=== PATIENT | female | born 1965 | race Caucasian/White ===

== ENCOUNTER → 2016-07-29 | Outpatient (CLI) | payer BC ==
[2016-07-29 09:56] LABS: CHLORIDE,CL 106 mmol/L (98-110); SODIUM,NA 137 mmol/L (136-146)
== END ==
LOC: MW.LAB 08:48
PROVIDERS: ATTEND Obstetrics & Gynecology
DX: R14.0 Abdominal distension (gaseous) (principal); R10.2 Pelvic and perineal pain; Z86.718 Personal history of other venous thrombosis and embolism
CPT/HCPCS: 36415; 80053; 80061; 82306; 82607; 83735; 84443; 85027; 85303

== ENCOUNTER → 2016-08-01 | Outpatient (CLI) | payer BC | LOC: MW.CHFP 08:03 | PROVIDERS: ATTEND Emergency Medicine | DX: Z83.3 Family history of diabetes mellitus (principal) | CPT/HCPCS: 36415; 83036 ==

== ENCOUNTER → 2016-08-02 | Outpatient (CLI) | payer BC ==
--- NOTE | 2016-08-03 13:10 | MY ---
EXAMINATION: Bilateral digital mammography utilizing CAD. HISTORY: Screening exam. Comparison is made to previous studies dated 07/27/2015, 07/23/2014, 013 . FINDINGS: Bilateral heterogeneously dense breast tissue. There are a few stable, loosely grouped c alcifications within the outer left breast. No suspicious calcifications, masses or architectural d istortions. No pathologic appearing lymph nodes, no abnormal skin thickening or nipple inversion. CAD highlighted regions appear normal at this time. IMPRESSION: BI-RADS category II - Benign finding. Continued screening according to ACR-ACS guidelin es suggested. THE FALSE-NEGATIVE RATE OF MAMMOGRAM IS APPROXIMATELY 10%. MANAGEMENT OF A PALPABLE ABNORMALITY MUST BE BASED UPON CLINICAL GROUNDS. SENSITIVITY FOR DETECTION OF ABNORMALITIES IN DENSE BREASTS IS LOW. NOTE: A letter will be sent to the patient regarding findings. [facility] -- [place] [phone] - FAX [phone]
== END ==
LOC: MW.MAM 13:24
PROVIDERS: ATTEND Obstetrics & Gynecology
DX: Z12.31 Encounter for screening mammogram for malignant neoplasm of breast (principal)
CPT/HCPCS: G0202; G0202-26

== ENCOUNTER 2017-04-19 09:06 | Day surgery (SDC) | payer BC ==
[~2017-04-19 09:06] MED LIST: Acetaminophen/HYDROcodone 325-5 MG Tab PO PRN; Bupivacaine 0.25%/EPINEPHrine 1:200,000 10 ML SDV INJECT ONE; Bupivacaine 25%/EPINEPHrine/PF 30 ML ONE; Clindamycin Phosphate in D5W 600 MG in Premix Bag 1 BAG IV ONE; Lactated Ringers 1,000 ML IV SCH; Octyl 2-Cyanoacrylate 1 Tube ONE
[2017-04-19] MEDS ORDERED: Scopolamine 1.5 MG Transdermal Patch TRDERM PRN (10:01)
--- NOTE | 2017-04-19 10:03 | PCM.PREANE ---
Preanesthetic Assessment - Procedure Proposed Procedure: bilateral upper blepharoplasty - Anesthesia/Transfusion/Family Hx Anesthesia History: Prior Anesthesia Reaction Other Type of Anesthesia Reaction Comment: Nausea, "concern with history of blood clot, with prior gave anti-coag ther Family History of Anesthesia Reaction: No Transfusion History: No Prior Transfusion(s) - Review of Systems Pulmonary: Cough (clear phlegm) Other: Reports: None - Physical Assessment NPO Status Date: 04/18/17 NPO Status Time: 21:00 Pulse: 89 O2 Sat by Pulse Oximetry: 98 Respiratory Rate: 12 Blood Pressure: 137/68 Temperature: 36.8 C Height: 5 ft 6 in Weight: 78.925 kg ASA Class: 2 Mental Status: Alert & Oriented x3 Airway Class: Mallampati = 1 Dentition: Reports: Normal Dentition Thyro-Mental Finger Breadths: 3 Mouth Opening Finger Breadths: 3 ROM/Head Extension: Full - Allergies Allergies/Adverse Reactions: Allergies Allergy/AdvReac Type Severity Reaction Status Date / Time Penicillins Allergy Cannot Verified 04/14/17 16:54 Remember - Blood Blood Available: No - Acknowledgements Anesthesia Type Planned: MAC Pt an Appropriate Candidate for the Planned Anesthesia: Yes Alternatives and Risks of Anesthesia Discussed w Pt/Guardian: Yes Pt/Guardian Understands and Agrees with Anesthesia Plan: Yes PreAnesthesia Questionnaire HEENT History: Reports: Allergic Rhinitis Other HEENT History: wears glasses/contacts Cardiovascular History: Reports: Blood Clots/VTE/DVT Other Cardiovascular History: has Paget Schroetter disease, 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 Respiratory History: Reports: Asthma, Sleep Apnea Other Respiratory History: uses CPAP, was told she "doesn't have asthma anymore ", no inhaler Gastrointestinal History: Reports: Diverticulosis, GERD Other Gastrointestinal History: Take natural things for colon stomach, occasional use of Nexium but current use of Colon Health, Digestive enzymes, ' Extrozyme', "Young Living" Musculoskeletal History: Reports: Back Pain, Chronic Neurological History: Reports: Other (See Below) Other Neuro History: hx of motion sickness Psychiatric History: Reports: Depression Other Psychiatric History: REcently off medication that have taken for 8 yrs approximately,. "no depression medication for 2 months" Endocrine/Metabolic History: Reports: Other (See Below) Other Endocrine/Metabolic History: vitamin B deficiency, type 2 DM take metformin BS at 1000 was 85 Hematologic History: Reports: B12 Deficiency, Other (See Below) Other Hematologic History: hx of Pagets Schroetter disease- has had a clood clot in her left subclavian vein- took anticoagulants for 1 1/2 years Other Oncologic History: 'Frozen section to upper lip area' Dermatologic History: Reports: Other (See Below) Other Dermatologic History: has non removable dermal piercings - Past Surgical History Head Surgeries/Procedures: Reports: None GI Surgical History: Reports: Colonoscopy Female Surgical History: Reports: Other (See Below) Other Female Surgeries/Procedures: abdominoplasty, Exploratory Laparotomy ( can't remember why) Musculoskeletal Surgical History: Reports: Arthroscopic Knee, Ganglion Cyst, Shoulder Surgery Other Musculoskeletal Surgeries/Procedures:: right RTCR, states one screw removed, may have more - SUBSTANCE USE Smoking Status *Q: Current Some Day Smoker Tobacco Use Within Last Twelve Months: Cigarettes Days Per Week of Alcohol Use: 2 Recreational Drug Use History: No - HOME MEDS Home Medications: Home Meds Cyanocobalamin (Vitamin B-12) [Vitamin B-12] 1,000 mcg IM WEEKLY 07/29/13 [ History] Esomeprazole [NexIUM] 40 mg PO DAILY 07/29/13 [History] Progesterone Cream 1 dose TOP ASDIRECTED 04/14/17 [History] Testosterone [Testopel] 1 dose IM ASDIRECTED 04/14/17 [History] Venlafaxine HCl [Venlafaxine HCl ER] 75 mg PO DAILY 04/14/17 [History] Vitamin B Complex 1 cap PO DAILY 04/14/17 [History] buPROPion [buPROPion XL] 150 mg PO DAILY 04/14/17 [History] metFORMIN HCl [Metformin HCl ER] 500 mg PO BIDMEALS 04/14/17 [History] - CURRENT (IN HOUSE) MEDS Current Meds: Current Medications Hydrocodone Bitart/Acetaminophen (Hadley 325-5 Mg) 1 tab PO Q4H PRN PRN Reason: Pain Lactated Ringer's (Ringers, Lactated) 1,000 mls @ 500 mls/hr IV .BOLUS TY Discontinued Medications Bupivacaine HCl/Epinephrine Bitart (Marcaine 0.25%/Epinephrine 1:200,000) 10 ml INJECT ONETIME ONE Stop: 04/19/17 08:01 Clindamycin Phosphate 600 mg/ (Premix) 50 mls @ 150 mls/hr IV ONETIME ONE Stop: 04/19/17 08:19 Bupivacaine HCl/Epinephrine Bitart (Sensorc Mpf 0.25%-Epi [id number]) Confirm Administered Dose 30 mls @ as directed .ROUTE .STK-MED ONE Stop: 04/19/17 07:37 Octyl Cyanoacrylate (Dermabond Advance) Confirm Administered Dose 1 applic .ROUTE .STK-MED ONE Stop: 04/19/17 08:18
[2017-04-19] MEDS ORDERED: Lidocaine 2% 5 ML SDV ONE (10:57)
[2017-04-19] MEDS ORDERED: Propofol 200 MG/20 ML SDV ONE ×2 (10:59)
[2017-04-19] MEDS ORDERED: Midazolam 1 MG/ML 2 ML SDV ONE (11:00)
[2017-04-19] MEDS ORDERED: fentaNYL 100 MCG/2 ML SDV ONE (11:00)
[2017-04-19] MEDS ORDERED: diphenhydrAMINE 50 MG/ML SDV ONE (12:33)
[2017-04-19] MEDS ORDERED: Ondansetron 4 MG/2 ML SDV ONE (13:09)
--- NOTE | 2017-04-19 14:11 | PCM48HPAN ---
Post Anesthesia Note - EVALUATION WITHIN 48HRS OF ANESTHETIC Vital Signs in Normal Range: Yes Patient Participated in Evaluation: Yes Respiratory Function Stable: Yes Airway Patent: Yes Cardiovascular Function Stable: Yes Hydration Status Stable: Yes Pain Control Satisfactory: Yes Nausea and Vomiting Control Satisfactory: Yes Mental Status Recovered: Yes - COMMENTS/OBSERVATIONS Free Text/Narrative:: No anesthesia problems,patient skipped recovery room phase of postoperative care
[2017-04-19 14:56] VITALS: BP 124/80
--- NOTE | 2017-04-20 08:01 | PCM.OPNOTE ---
- General Post-Op/Procedure Note Date of Surgery/Procedure: 04/19/17 Operative Procedure(s): bilateral upper lid blepahroplasties for excess skin Pre Op Diagnosis: dermatochalasis bilateral upper lids Post-Op Diagnosis: Same Anesthesia Technique: Local, MAC Primary Surgeon: Nidia Rosales Hopper Feeder: Pepper Wilde Complications: None Condition: Good
--- NOTE | 2017-04-20 12:47 | OR ---
SURGEON: ADRIAN OLIVA MD DATE OF PROCEDURE: 04/19/2017 PREOPERATIVE DIAGNOSIS: Dermatochalasis of bilateral upper lids. POSTOPERATIVE DIAGNOSIS: Dermatochalasis of bilateral upper lids. PROCEDURE: Bilateral upper lid blepharoplasties for excess skin. HAND SALTER: JOHN Morse. ANESTHESIA: Local MAC. INDICATIONS: Ms. Rasmussen is a 52-year-old female with significant upper eyelid skin enough that it is causing her visual obstruction. Risks and benefits of blepharoplasty bilaterally were discussed with her including, but not limited to, bleeding, infection, damage to underlying or overlying structures, possible need for future interventions, possible scarring. PROCEDURE IN DETAIL: After informed consent was obtained and placed on the chart, the patient was brought to the operating theater and laid in supine position. After adequate local MAC anesthesia was obtained, the area was prepped and draped, and a time- out was completed to confirm side and site. The patient does have new dermal implant on the upper back and a bipolar cautery was elected. Attention was then paid to markings using a small caliper for 1 cm preservation of the upper lid and 1 cm excision. Once adequately prepped and draped and marked, attention was then paid to injection of 0.25% Marcaine with epinephrine in a field block. Once adequately blocked, attention was then paid to the elliptical incision and the skin was removed. Meticulous hemostasis was obtained using the bipolar electrocautery. Once adequate hemostasis and contracture of the muscle, the wounds were closed with deep 5-0 Monocryl stitches and a running 6-0 Prolene for the skin. The patient tolerated this well and Steri-Strips were place using Mastisol. FOLLOWUP INSTRUCTIONS: The patient will see us in approximately 1 week sooner if any problems, questions, or concerns. Given a prescription for pain control. HEGGTHE / MODL /[id number] MTDBar
== END 2017-04-19 14:30 | disposition home or self-care (01) ==
LOC: MW.SDS 09:06
PROVIDERS: ATTEND Plastic Surgery
DX: H02.834 Dermatochalasis of left upper eyelid (principal); H02.831 Dermatochalasis of right upper eyelid; J45.909 Unspecified asthma, uncomplicated; F32.9 Major depressive disorder, single episode, unspecified; N60.19 Diffuse cystic mastopathy of unspecified breast; K21.9 Gastro-esophageal reflux disease without esophagitis; G47.33 Obstructive sleep apnea (adult) (pediatric); E66.3 Overweight; D68.59 Other primary thrombophilia; E53.8 Deficiency of other specified B group vitamins; E11.9 Type 2 diabetes mellitus without complications; Z99.89 Dependence on other enabling machines and devices; Z88.0 Allergy status to penicillin; Z79.899 Other long term (current) drug therapy; Z98.890 Other specified postprocedural states; Z68.28 Body mass index [BMI] 28.0-28.9, adult; Z79.84 Long term (current) use of oral hypoglycemic drugs
CPT/HCPCS: 15822; 81025; 82962; A9270; J1200; J2250; J2405; J3010; J7120; 00103; J2704

== ENCOUNTER 2018-04-10 07:20 | Day surgery (SDC) | payer BC ==
[~2018-04-10 07:20] MED LIST changes: -Acetaminophen/HYDROcodone 325-5 MG Tab PO PRN; -Bupivacaine 0.25%/EPINEPHrine 1:200,000 10 ML SDV INJECT ONE; -Bupivacaine 25%/EPINEPHrine/PF 30 ML ONE; -Clindamycin Phosphate in D5W 600 MG in Premix Bag 1 BAG IV ONE; +Lidocaine 2% 5 ML SDV ONE; +Midazolam 1 MG/ML 2 ML SDV ONE; -Octyl 2-Cyanoacrylate 1 Tube ONE; +Propofol 200 MG/20 ML SDV ONE; +Sodium Chloride 0.9% 10 ML Syringe FLUSH PRN; +Sodium Chloride 0.9% 2.5 ML Syringe FLUSH PRN; +fentaNYL 100 MCG/2 ML SDV ONE
--- NOTE | 2018-04-10 08:06 | PCM.PREANE ---
Preanesthetic Assessment - Procedure Proposed Procedure: EGD with biopsy - Anesthesia/Transfusion/Family Hx Anesthesia History: Prior Anesthesia Without Reaction (blepharoplasty, colonoscopy, upper lip biopsy, abdominoplasty, knee, shoulder, exploratory laparotomy: No prolems with anesthesia) Other Type of Anesthesia Reaction Comment: Nausea, "concern with history of blood clot, with prior gave anti-coag ther Family History of Anesthesia Reaction: No Transfusion History: No Prior Transfusion(s) - Review of Systems General: No Symptoms (NIDDM, asthma, depression, smoker, RICARDO per sleep study, history of blood clot in left subclavian vein(Paget Schroetter disease--was on anticoagulants for 18 months), GERD, divdrticulosis, low back pain, borderline short CO interval on EKG without episodes of tachycardias) Pulmonary: No Symptoms (last asthma attack where she HAD to use her inhaler approx one week ago in [place] > RICARDO--uses CPAP nightly) Cardiovascular: No Symptoms Gastrointestinal: No Symptoms Neurological: No Symptoms (dpression) Other: Reports: None (3 dermal piercings on back) - Physical Assessment NPO Status Date: 04/10/18 NPO Status Time: 00:00 Pulse: 102 O2 Sat by Pulse Oximetry: 98 Respiratory Rate: 18 Blood Pressure: 133/87 Temperature: 36.8 C Height: 1.68 m Weight: 77.564 kg ASA Class: 3 Mental Status: Alert & Oriented x3 Airway Class: Mallampati = 2 Dentition: Reports: Normal Dentition Thyro-Mental Finger Breadths: 2 Mouth Opening Finger Breadths: 3 ROM/Head Extension: Full Lungs: Clear to Auscultation (she took a puff of albuterol inhaler this morning and again just prior to my examination of her(per my request)), Normal Respiratory Effort Cardiovascular: Regular Rate, Regular Rhythm, No Murmurs - Lab Values: CBC on 09/22/17 was WNL BMP 12/28 = WNL FBS this morning 0818 hrs = 110 Cannot urinate: HCG blood draw at 0825 - Imaging/EKG Impressions: EKG done 07/2016 was NSR - Allergies Allergies/Adverse Reactions: Allergies Allergy/AdvReac Type Severity Reaction Status Date / Time Penicillins Allergy Cannot Verified 04/05/18 10:42 Remember - Blood Blood Available: No Product(s) Available: None - Anesthesia Plan Pre-Op Medication Ordered: Other (albuterol inhaler done preop) - Acknowledgements Anesthesia Type Planned: MAC (MAC discusssed with patient and --all questions answered. Consent signed.) Pt an Appropriate Candidate for the Planned Anesthesia: Yes Alternatives and Risks of Anesthesia Discussed w Pt/Guardian: Yes Pt/Guardian Understands and Agrees with Anesthesia Plan: Yes Additional Comments: Blood clot in left subclavian vein l989 due to ?. Paget Schroetter disease- first rib impingement?. Patient was actively participating in 4 softball teams at the time. Treated for 18 months with blood thinners. Not fully resolved at this point but stable. The axillary-subclavian clotting occurs with repeated activity of the arm/ shoulder (as in softball). No further recurrences PreAnesthesia Questionnaire HEENT History: Reports: Allergic Rhinitis, Other (See Below) Other HEENT History: wears glasses occasionally Cardiovascular History: Reports: Blood Clots/VTE/DVT, Other (See Below) Other Cardiovascular History: 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 for over a year- hx of shortened CO interval per chart Respiratory History: Reports: Sleep Apnea, Other (See Below) Other Respiratory History: hx of chronic cough, hx of sleep apnea- uses CPAP Gastrointestinal History: Reports: GERD Other Gastrointestinal History: Take natural things for colon stomach, occasional use of Nexium but current use of Colon Health, Digestive enzymes, ' Extrozyme', "Young Living" Genitourinary History: Reports: None Musculoskeletal History: Reports: Back Pain, Chronic, Neck Pain, Chronic Neurological History: Reports: Other (See Below) Other Neuro History: hx of motion sickness Psychiatric History: Reports: Depression Other Psychiatric History: REcently off medication that have taken for 8 yrs approximately,. "no depression medication for 2 months" Endocrine/Metabolic History: Reports: Diabetes, Type II Other Endocrine/Metabolic History: vitamin B deficiency, type 2 DM take metformin BS at 1000 was 86 Hematologic History: Reports: B12 Deficiency Other Hematologic History: hx of Pagets Schroetter disease- has had a clood clot in her left subclavian vein- took anticoagulants for 1 1/2 years Other Oncologic History: 'Frozen section to upper lip area' Dermatologic History: Reports: Other (See Below) Other Dermatologic History: has 3 dermal piercings in back- not removable - Past Surgical History HEENT Surgical History: Reports: Eye Surgery Other HEENT Surgeries/Procedures: hx of Blepharoplasty GI Surgical History: Reports: Colonoscopy, Other (See Below) Other GI Surgeries/Procedures: hx of Abdominoplasty Female Surgical History: Reports: Other (See Below) Other Female Surgeries/Procedures: hx of Laparoscopy Musculoskeletal Surgical History: Reports: Arthroscopic Knee, Ganglion Cyst, Shoulder Surgery Other Musculoskeletal Surgeries/Procedures:: right RTCR - SUBSTANCE USE Smoking Status *Q: Current Some Day Smoker Tobacco Use Within Last Twelve Months: Cigarettes Recreational Drug Use History: No - HOME MEDS Home Medications: Home Meds Cyanocobalamin (Vitamin B-12) [Vitamin B-12] 1,000 mcg IM ASDIRECTED 07/29/13 [ History] Esomeprazole [NexIUM] 40 mg PO DAILY 07/29/13 [History] Venlafaxine HCl [Venlafaxine HCl ER] 150 mg PO DAILY 04/14/17 [History] Vitamin B Complex 1 cap PO DAILY 04/14/17 [History] buPROPion [buPROPion XL] 150 mg PO DAILY 04/14/17 [History] metFORMIN HCl [Metformin ER Osmotic] 500 mg PO BIDMEALS 04/14/17 [History] Albuterol [Ventolin HFA] 1 - 2 puff INH Q4H PRN 04/05/18 [History] Budesonide/Formoterol Fumarate [Symbicort 160-4.5 Mcg Inhaler] 2 puff INH BID [History] Fluticasone Propionate [Flonase Allergy Relief] 1 - 2 spray NASBOTH DAILY PRN [History] Montelukast Sodium 10 mg PO BEDTIME 04/05/18 [History] Ozempic 0.5 mg SQ WEEKLY 04/05/18 [History] - CURRENT (IN HOUSE) MEDS Current Meds: Current Medications Lactated Ringer's (Ringers, Lactated) 1,000 mls @ 125 mls/hr IV ASDIRECTED TY Sodium Chloride (Saline Flush) 10 ml FLUSH ASDIRECTED PRN PRN Reason: Keep Vein Open Sodium Chloride (Saline Flush) 2.5 ml FLUSH ASDIRECTED PRN PRN Reason: Keep Vein Open Sodium Chloride (Saline Flush) 10 ml FLUSH ASDIRECTED PRN PRN Reason: Keep Vein Open Sodium Chloride (Saline Flush) 2.5 ml FLUSH ASDIRECTED PRN PRN Reason: Keep Vein Open Discontinued Medications Fentanyl (Sublimaze) Confirm Administered Dose 100 mcg .ROUTE .STK-MED ONE Stop: 04/10/18 07:10 Lidocaine (Xylocaine-Mpf 2%) Confirm Administered Dose 5 ml .ROUTE .STK-MED ONE Stop: 04/10/18 07:09 Midazolam HCl (Versed 1 Mg/Ml) Confirm Administered Dose 2 mg .ROUTE .STK-MED ONE Stop: 04/10/18 07:10 Propofol (Diprivan 20 Ml) Confirm Administered Dose 400 mg .ROUTE .STK-MED ONE Stop: 04/10/18 07:10
--- NOTE | 2018-04-10 09:29 | PCM.OPNOTE ---
- General Post-Op/Procedure Note Date of Surgery/Procedure: 04/10/18 Operative Procedure(s): Diagnostic EGD and colonoscopy Findings: Grossly normal EGD, sigmoid colon polyps x 2, diverticulosis Pre Op Diagnosis: Chronic cough, diverticulitis Post-Op Diagnosis: Chronic cough, diverticulosis, sigmoid colon polyps Anesthesia Technique: [facility] Primary Surgeon: Anastasia Laird Condition: Good
[2018-04-10 10:03] VITALS: BP 133/87
--- NOTE | 2018-04-10 10:03 | PCM48HPAN ---
Post Anesthesia Note - EVALUATION WITHIN 48HRS OF ANESTHETIC Vital Signs in Normal Range: Yes Patient Participated in Evaluation: Yes Respiratory Function Stable: Yes Airway Patent: Yes Cardiovascular Function Stable: Yes Hydration Status Stable: Yes Pain Control Satisfactory: Yes Nausea and Vomiting Control Satisfactory: Yes Mental Status Recovered: Yes Pulse Rate: 102 Resp Rate: 16 Temperature: 36.8 C Blood Pressure: 133/87 - COMMENTS/OBSERVATIONS Free Text/Narrative:: no anesthesia problems
--- NOTE | 2018-04-10 12:16 | OR ---
SURGEON: NIKOLAS EISENBERG MD DATE OF PROCEDURE: 04/10/2018 PREOPERATIVE DIAGNOSES: 1. Chronic cough. 2. Diverticulitis. POSTOPERATIVE DIAGNOSES: 1. Chronic cough. 2. Diverticulosis. 3. Sigmoid colon polyps x2. 4. Hyperplastic gastric polyp. PROCEDURES PERFORMED: Diagnostic esophagogastroduodenoscopy and colonoscopy. ANESTHESIA: MAC. INSTRUMENT USED: Olympus endoscope and colonoscope. EXTENT OF EXAM: To the second portion of duodenum, to the cecum. PREPARATION: Good. LIMITATIONS: None. INDICATION FOR EXAMINATION: The patient is a 53-year-old female who presents with chronic cough. The patient also has a history of diverticulitis and has had no followup for this. We discussed the need for diagnostic EGD to rule out reflux and a diagnostic colonoscopy, given her history of diverticulitis. I explained both procedures as well as the expected perioperative course. I explained the risks including bleeding, infection, or damage to surrounding structures including perforation. The patient verbalized understanding and wishes to proceed. PROCEDURE IN DETAIL: The patient was brought into the endoscopy suite and placed in the left lateral decubitus position. A time-out was completed verifying the patient's name, age, date of , allergies, and procedure to be performed. A bite block was placed in the patient's mouth. Monitored anesthesia care was induced and continuous oxygen was provided via nasal cannula throughout the procedure. After adequate sedation was achieved, a well lubricated endoscope was placed in the patient's mouth and advanced under direct visualization to the second portion of duodenum. This appeared normal and a photograph was taken. The scope was then straightened out and fully withdrawn while examining the color, texture, anatomy, and integrity mucosa of the upper GI tract. The duodenal mucosa appeared normal. Scope was brought into the stomach and a photograph was taken of the GE junction and the pylorus. Both appeared normal. The gastric mucosa appeared free of gross inflammation or ulceration. Biopsies were taken of the gastric antrum, body, and fundus and sent for histologic review and H. pylori testing. The patient did have one small hyperplastic appearing polyp in the body of the stomach. This was biopsied and sent to pathology, labeled as hyperplastic polyp. The scope was then brought into the distal esophagus and a photograph was taken of the Z-line. This appeared normal. The esophageal mucosa did not have any gross evidence of esophagitis. A biopsy was taken using a cold biopsy forceps and sent to pathology. The remainder of the esophageal mucosa was normal. The scope was then removed and this portion of procedure was terminated. A digital rectal exam was performed. This was normal. A well lubricated colonoscope was inserted into the rectum and advanced under direct visualization to the level of the cecum. The cecum was identified by both visual and anatomic landmarks. A photograph was taken of the cecal cap as well as with the scope retroflexed within the cecum. The scope was then fully withdrawn while examining the color, texture, anatomy, and integrity of the mucosa from the cecum to the anal canal. The patient had diverticulosis, scattered throughout the sigmoid colon. At 35 cm, there was a small 3 to 4 mm raised polyp. This was removed using a cold snare. At 25 cm, the patient had a very small sessile polyp in the sigmoid colon. This was removed using a cold biopsy forceps. The scope was then brought into the rectum and retroflexed to allow visualization of the anal canal opening. This appeared normal and a photograph was taken. The scope was then straightened out and fully withdrawn. The cecum to anus time was 11 minutes. The patient tolerated the procedure well and was taken to PACU in stable condition. ENDOSCOPIC DIAGNOSES: 1. Chronic cough. 2. Hyperplastic gastric polyp. 3. Diverticulosis. 4. Sigmoid colon polyps x2. RECOMMENDATIONS: Follow up in clinic in 2 weeks. YVROSE STONE /[id number]
== END 2018-04-10 10:13 | disposition home or self-care (01) ==
LOC: MW.SDS 07:20
PROVIDERS: ATTEND Surgery
DX: R05 Cough (principal); K20.9 Esophagitis, unspecified; K31.7 Polyp of stomach and duodenum; K51.40 Inflammatory polyps of colon without complications; K57.30 Diverticulosis of large intestine without perforation or abscess without bleeding; E11.9 Type 2 diabetes mellitus without complications; F17.210 Nicotine dependence, cigarettes, uncomplicated; J45.30 Mild persistent asthma, uncomplicated; E66.3 Overweight; F32.9 Major depressive disorder, single episode, unspecified; K21.9 Gastro-esophageal reflux disease without esophagitis; G47.33 Obstructive sleep apnea (adult) (pediatric); Z87.19 Personal history of other diseases of the digestive system; Z79.84 Long term (current) use of oral hypoglycemic drugs; Z79.899 Other long term (current) drug therapy; Z99.89 Dependence on other enabling machines and devices; Z88.0 Allergy status to penicillin
CPT/HCPCS: 36415; 43239; 45380; 45385; 82962; 84703; J2001; J2250; J2704; J3010; J7120; 00813; 88305; 88312

== ENCOUNTER 2019-08-13 07:55 | Day surgery (SDC) | payer BC ==
[2019-08-12 11:33] LABS: BLOOD UREA NITROGEN,BUN 10 mg/dL (7.0-18.0); CARBON DIOXIDE,CO2 24.3 mmol/L (21.0-32.0); CHLORIDE,CL 104 mmol/L (98-107); GLUCOSE RANDOM 88 mg/dL (74-106); SODIUM,NA 139 mmol/L (136-145)
[~2019-08-13 07:55] MED LIST changes: -Lactated Ringers 1,000 ML IV SCH; +Ondansetron 4 MG/2 ML SDV ONE; +Sodium Chloride 0.9% 10 ML SDV IV PRN
[2019-08-13] MEDS ORDERED: Propofol 200 MG/20 ML SDV ONE ×2 (08:07→10:10)
[2019-08-13] MEDS ORDERED: Methylene Blue 50 MG/10 ML Ampule ONE (08:11)
[2019-08-13] MEDS ORDERED: Bupivacaine 0.25% 10 ML SDV ONE (08:12)
--- NOTE | 2019-08-13 08:33 | PCM.PREANE ---
Preanesthetic Assessment - Anesthesia/Transfusion/Family Hx Anesthesia History: Prior Anesthesia Without Reaction (blepharoplasty, colonoscopy, upper lip biopsy, abdominoplasty, knee, shoulder, exploratory laparotomy: No prolems with anesthesia) Other Type of Anesthesia Reaction Comment: Nausea, "concern with history of blood clot, with prior gave anti-coag ther Family History of Anesthesia Reaction: No Transfusion History: No Prior Transfusion(s) - Review of Systems General: No Symptoms Pulmonary: No Symptoms Cardiovascular: No Symptoms Gastrointestinal: No Symptoms Neurological: No Symptoms Other: Reports: None - Physical Assessment NPO Status Date: 08/12/19 Vital Signs: Last Vital Signs Temp 98.1 F 08/13/19 08:15 Pulse 87 08/13/19 08:15 Resp 16 08/13/19 08:15 BP 113/87 08/13/19 08:15 Pulse Ox 98 08/13/19 08:15 Height: 5 ft 5.5 in Weight: 66.678 kg ASA Class: 2 Mental Status: Alert & Oriented x3 Dentition: Reports: Normal Dentition ROM/Head Extension: Full Lungs: Clear to Auscultation, Normal Respiratory Effort Cardiovascular: Regular Rate, Regular Rhythm - Lab Values: Laboratory Last Values WBC 5.27 K/uL (4.0-11.0) 08/12/19 11:03 RBC 4.00 M/uL (4.30-5.90) L 08/12/19 11:03 Hgb 12.4 g/dL (12.0-16.0) 08/12/19 11:03 Hct 37.7 % (36.0-46.0) 08/12/19 11:03 MCV 94.3 fL (80.0-98.0) 08/12/19 11:03 MCH 31.0 pg (27.0-32.0) 08/12/19 11:03 MCHC 32.9 g/dL (31.0-37.0) 08/12/19 11:03 RDW Std Deviation 47.9 fl (28.0-62.0) 08/12/19 11:03 RDW Coeff of Anahy 14 % (11.0-15.0) 08/12/19 11:03 Plt Count 207 K/uL (150-400) 08/12/19 11:03 MPV 11.70 fL (7.40-12.00) 08/12/19 11:03 Nucleated RBC % 0.0 /100WBC 08/12/19 11:03 Nucleated RBCs # 0 K/uL 08/12/19 11:03 Sodium 139 mmol/L (136-145) 08/12/19 11:03 Potassium 4.0 mmol/L (3.5-5.1) 08/12/19 11:03 Chloride 104 mmol/L (98-107) 08/12/19 11:03 Carbon Dioxide 24.3 mmol/L (21.0-32.0) 08/12/19 11:03 BUN 10 mg/dL (7.0-18.0) 08/12/19 11:03 Creatinine 0.8 mg/dL (0.6-1.0) 08/12/19 11:03 Est Cr Clr Drug Dosing 74.66 mL/min 08/12/19 11:03 Estimated GFR (MDRD) > 60.0 ml/min 08/12/19 11:03 Glucose 88 mg/dL (74-106) 08/12/19 11:03 POC Glucose 91 mg/dL (60-110) 08/13/19 08:18 Calcium 8.1 mg/dL (8.5-10.1) L 08/12/19 11:03 HCG, Qual NEGATIVE (NEG) 08/12/19 11:03 SARS Virus RNA (PCR) NEGATIVE (NEGATIVE) 08/12/19 09:55 Blood Type O POSITIVE 08/12/19 11:03 Antibody Screen NEGATIVE 08/12/19 11:03 - Allergies Allergies/Adverse Reactions: Allergies Allergy/AdvReac Type Severity Reaction Status Date / Time Penicillins Allergy Cannot Verified 04/05/18 10:42 Remember - Blood Blood Available: No - Anesthesia Plan Pre-Op Medication Ordered: None - Acknowledgements Anesthesia Type Planned: General Anesthesia Pt an Appropriate Candidate for the Planned Anesthesia: Yes Alternatives and Risks of Anesthesia Discussed w Pt/Guardian: Yes Pt/Guardian Understands and Agrees with Anesthesia Plan: Yes Additional Comments: PMH: no longer DM@ since weight loss, less RICARDO since wt loss, asthma is exercise provoked only, smoker PLAN: ga/LMA PreAnesthesia Questionnaire HEENT History: Reports: Allergic Rhinitis, Other (See Below) Other HEENT History: wears glasses occasionally Cardiovascular History: Reports: Blood Clots/VTE/DVT, Other (See Below) Other Cardiovascular History: 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 for 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- hx of shortened AL interval per chart Respiratory History: Reports: Sleep Apnea, Other (See Below) Other Respiratory History: hx of chronic cough, hx of sleep apnea- uses CPAP Gastrointestinal History: Reports: GERD Other Gastrointestinal History: Take natural things for colon stomach, occasional use of Nexium but current use of Colon Health, Digestive enzymes, ' Extrozyme', "[employer]" Genitourinary History: Reports: None AGRICULTURE SPECIALIST History: Reports: Musculoskeletal History: Reports: Back Pain, Chronic, Neck Pain, Chronic Other Musculoskeletal History: back and hip pain Neurological History: Reports: Other (See Below) Other Neuro History: hx of motion sickness Psychiatric History: Reports: Depression Other Psychiatric History: REcently off medication that have taken for 8 yrs approximately,. 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' Dermatologic History: Reports: Other (See Below) Other Dermatologic History: has 3 dermal piercings in back- not removable - Past Surgical History GI Surgical History: Reports: Colonoscopy, Other (See Below) Other GI Surgeries/Procedures: hx of Abdominoplasty Female Surgical History: Reports: Other (See Below) Other Musculoskeletal Surgeries/Procedures:: right RTCR - SUBSTANCE USE Smoking Status *Q: Current Some Day Smoker Tobacco Use Within Last Twelve Months: Cigarettes - HOME MEDS Home Medications: Home Meds metFORMIN HCl [Metformin ER Osmotic] 500 mg PO DAILY 04/14/17 [History] Albuterol [Ventolin HFA] 1 - 2 puff INH Q4H PRN 04/05/18 [History] Budesonide/Formoterol Fumarate [Symbicort 160-4.5 Mcg Inhaler] 2 puff INH BID PRN 04/05/18 [History] Ozempic 0.25 ml SQ WEEKLY 04/05/18 [History] Ascorbate Calcium [Vitamin C] 500 mg PO DAILY 08/07/19 [History] Herbal Supplements 1 dose PO ASDIRECTED 08/07/19 [History] Multivitamin [Multivitamins] 1 tab PO DAILY 08/07/19 [History] Pantoprazole Sodium [Protonix] 40 mg PO DAILY 08/07/19 [History] Venlafaxine [Effexor XR] 150 mg PO DAILY 08/07/19 [History] buPROPion HCL [Wellbutrin Xl] 300 mg PO BEDTIME 08/07/19 [History] Cyanocobalamin (Vitamin B-12) [Cyanocobalamin Injection] 1 injection IM ASDIRECTED 08/09/19 [History] - CURRENT (IN HOUSE) MEDS Current Meds: Current Medications Enoxaparin Sodium (Lovenox) 40 mg SUBCUT Q24H TY Cefazolin Sodium/Dextrose 1 gm (/ Premix) 50 mls @ 100 mls/hr IV ONETIME ONE Stop: 08/13/19 09:59 Lactated Ringer's (Ringers, Lactated) 1,000 mls @ 100 mls/hr IV ASDIRECTED TY Sodium Chloride (Saline Flush) 10 ml FLUSH ASDIRECTED PRN PRN Reason: Keep Vein Open Sodium Chloride (Saline Flush) 2.5 ml FLUSH ASDIRECTED PRN PRN Reason: Keep Vein Open Sodium Chloride (Normal Saline) 10 ml IV ASDIRECTED PRN PRN Reason: IV Use Discontinued Medications Bupivacaine HCl (Sensorcaine-Mpf 0.25%) Confirm Administered Dose 20 ml .ROUTE .STK-MED ONE Stop: 08/13/19 08:13 Fentanyl (Sublimaze) Confirm Administered Dose 100 mcg .ROUTE .STK-MED ONE Stop: 08/13/19 07:27 Lidocaine (Xylocaine-Mpf 2%) Confirm Administered Dose 5 ml .ROUTE .STK-MED ONE Stop: 08/13/19 07:27 Methylene Blue (Provayblue) Confirm Administered Dose 50 mg .ROUTE .STK-MED ONE Stop: 08/13/19 08:12 Midazolam HCl (Versed 1 Mg/Ml) Confirm Administered Dose 2 mg .ROUTE .STK-MED ONE Stop: 08/13/19 07:27 Ondansetron HCl (Zofran) Confirm Administered Dose 4 mg .ROUTE .STK-MED ONE Stop: 08/13/19 07:27 Propofol (Diprivan 20 Ml) Confirm Administered Dose 400 mg .ROUTE .STK-MED ONE Stop: 08/13/19 07:27 Propofol (Diprivan 20 Ml) Confirm Administered Dose 200 mg .ROUTE .STK-MED ONE Stop: 08/13/19 08:08
[2019-08-13] MEDS: Lactated Ringers 1,000 ML IV SCH ×2 (08:44→19:49)
[2019-08-13] MEDS ORDERED: ePHEDrine 50 MG/ML SDV ONE (09:09)
[2019-08-13] MEDS ORDERED: Ketamine 500 mg/10 ML MDV ONE (09:20)
[2019-08-13] MEDS ORDERED: fentaNYL 100 MCG/2 ML SDV ONE ×2 (09:20→09:47)
[2019-08-13] MEDS ORDERED: ceFAZolin 1 GM in Premix Bag 1 BAG IV ONE (09:30)
[2019-08-13] MEDS ORDERED: Scopolamine 1.5 MG Transdermal Patch ONE (09:34)
[2019-08-13] MEDS ORDERED: fentaNYL 100 MCG/2 ML SDV IVPUSH PRN (10:07)
[2019-08-13] MEDS ORDERED: HYDROmorphone 2 MG/ML Syringe ONE (10:08)
[2019-08-13] MEDS ORDERED: Furosemide 40 MG/4 ML VIAL ONE (10:19)
[2019-08-13] MEDS ORDERED: Fluorescein 5 ML Vial ONE (10:19)
[2019-08-13] MEDS ORDERED: Acetaminophen/oxyCODONE 325-5 MG Tab PO PRN (10:57)
[2019-08-13] MEDS ORDERED: Ondansetron 4 MG/2 ML SDV IVPUSH PRN (10:57)
[2019-08-13] MEDS ORDERED: Promethazine 25 MG/ML SDV IM PRN (10:57)
--- NOTE | 2019-08-13 10:57 | PCM.OPNOTE ---
- General Post-Op/Procedure Note Date of Surgery/Procedure: 08/13/19 Operative Procedure(s): total vaginal hysterectomy with cystoscopy Findings: 10 week sized uterus, with fibroids, normal appearing tubes and ovaries. On cystoscopy there was copious flow of bright green urine from bilateral ureteral orifices after IV fluoroscein, no bladder trauma. Pre Op Diagnosis: submucosal fibroid, with menorrhagia. Post-Op Diagnosis: Same Anesthesia Technique: General ET Tube Primary Surgeon: Miley Mcconnell Secondary Surgeon: Rodrigo Hoskins Anesthesia Provider: Darin Mckinnon Product Development Director: Obdulia العراقي Pathology: uterus Fluid Replacement, Intraop: 1,400 EBL in mLs: 200 Complications: None Known Condition: Good
[2019-08-13] MEDS ORDERED: Budesonide/Formoterol 160-4.5 MCG/Puff 6 GM Inhaler INH PRN ×2 (11:05→11:11)
[2019-08-13] MEDS ORDERED: Albuterol 8 GM Inhaler INH PRN (11:05)
[2019-08-13] MEDS: Morphine 4 MG/ML Syringe IVPUSH PRN ×2 (11:33→14:40)
--- NOTE | 2019-08-13 11:34 | PCM.POSTAN ---
POST ANESTHESIA ASSESSMENT - MENTAL STATUS Mental Status: Alert, Oriented - VITAL SIGNS Vital Signs: Last Vital Signs Temp 36.4 C 08/13/19 10:49 Pulse 92 08/13/19 11:14 Resp 10 L 08/13/19 11:14 BP 128/84 08/13/19 11:14 Pulse Ox 97 08/13/19 11:14 - RESPIRATORY Respiratory Status: Respiratory Rate WNL, Airway Patent, O2 Saturation Stable - CARDIOVASCULAR CV Status: Pulse Rate WNL, Blood Pressure Stable
[2019-08-13] MEDS: Enoxaparin 40 MG/0.4 ML Syringe SUBCUT SCH (12:09)
[2019-08-13] MEDS: Insulin Regular, Human 100 Units/ML 10 ML Vial SUBCUT SCH ×3 (12:23→21:16)
--- NOTE | 2019-08-13 19:39 | OR ---
SURGEON: Miley Mcconnell M.D. DATE OF PROCEDURE: 08/13/2019 PREOPERATIVE DIAGNOSES: 1. Menorrhagia. 2. Submucosal fibroid. POSTOPERATIVE DIAGNOSES: 1. Menorrhagia. 2. Submucosal fibroid. PROCEDURE PERFORMED: Total vaginal hysterectomy with cystoscopy. PRIMARY SURGEON: Miley Mcconnell M.D. GAS STATION MANAGER: MD Arturo. ANESTHESIA: General endotracheal. FLUIDS: 1500 mL crystalloid. ESTIMATED BLOOD LOSS: 200 mL. FINDINGS: Uterus was 10-week size with fibroids. Normal-appearing tubes and ovaries. On cystoscopy after IV fluorescein was given, there was copious flow of bright green urine from bilateral ureteral orifices. There was also no evidence of any trauma to the bladder mucosa. COMPLICATIONS: None known. DISPOSITION: Stable to Recovery. BRIEF HISTORY: This is a 54-year-old female. She presents with a history of menorrhagia. Evaluation shows a large submucosal fibroid. After discussion of options, she desires to proceed with hysterectomy. Given her history of childbirth and the size of the uterus, I felt that this could safely be accomplished with a vaginal hysterectomy. She desires to retain her tubes and ovaries unless they appear abnormal. The fibroid due to the size and depth was not a good candidate for hysteroscopic myomectomy, and she declined Interventional Radiology for the treatment of the fibroid. Risks of the surgery were discussed including bleeding; infection; injury to bowel, bladder, blood vessels, ureter, or other organs; risk of thromboembolic event; and risk of anesthesia. Understanding these risks, she does desire to proceed. Notably, she has a history of significant thrombosis in her left arm. This sounds to be a superficial thrombosis. Nonetheless, we will proceed with appropriate anticoagulation with Lovenox preoperatively and postoperatively. Additionally, she is diabetic with excellent control and did receive preoperative clearance from Dr. March. DESCRIPTION OF PROCEDURE: With the patient in dorsal lithotomy position, under adequate general endotracheal anesthesia, the perineum and vagina were prepped with Betadine and draped in the usual fashion for vaginal surgery. SCDs were in place. Torres catheter was in place. She had received a gram of Ancef IV as well as 40 mg of Lovenox subcu preoperatively. After appropriate time-out was held, bimanual examination revealed a 10-week size mobile uterus with an anterior fibroid. The weighted speculum was placed posteriorly and vaginal sidewall retractors were placed. The cervix was grasped with a Casey tenaculum and circumscribed using electrocautery. The vaginal mucosa was pushed away from the cervix using a moist sponge. The posterior cul-de-sac was easily entered using sharp scissors. A Senait-Auvard speculum was then placed posteriorly. Anteriorly, dissection was performed up to the uterocervical junction. The peritoneum had not been entered at this point. Therefore, the uterosacral ligaments were doubly clamped, cut, and ligated using Albino ligature of 2-0 Polysorb. These were retained for closure. Further dissection was performed in the anterior cul-de- sac, and a finger was used to palpate the peritoneum, which was then grasped, incised, and entered. A finger was used to ensure that there was no trauma to the bladder mucosa. The Torres bulb was palpable through the bladder wall and, therefore, the right angle retractor was placed in the anterior cul-de-sac. Three additional pedicles, which were doubly clamped, cut, and ligated using a Albino ligature of 2-0 Polysorb were performed on the right and the left until the utero-ovarian ligaments were identified, isolated and doubly clamped, cut, and ligated using a free tie, followed by a Albino ligature of 2-0 Polysorb. These were retained for inspection. The ovaries were identified. There was a simple cyst on the right ovary. They both appeared normal. Tubes appeared normal and they were left in situ. The pedicles were then released. Careful inspection of all pedicles was then performed. Near the left vaginal cuff, there was some bleeding primarily from the cuff that was controlled with a [id number] suture of 2-0 Polysorb. Once complete hemostasis was confirmed, the retained uterosacral ligaments were ligated to the vaginal apices bilaterally. The vaginal mucosa was closed with a running locked suture of 0 Polysorb. The patient was taken out of Trendelenburg position. The catheter was removed. IV Lasix and fluorescein were given. Cystoscopy was performed using sterile water as a distending media. Bilateral ureteral orifices were easily identified, and there was copious flow of bright green urine. The bladder wall was carefully inspected. There was no evidence of any trauma. This being completed, the cystoscope was removed. The catheter was replaced. Speculum was placed in the vagina, and a sponge stick was used to visualize the vaginal cuff, which was hemostatic. Therefore, all the instruments were removed from the vagina. Final sponge, needle, and instrument counts were reported as correct. There were no known complications. The patient was transferred to Recovery in good condition. FELICIA STONE /[id number]
[2019-08-13] MEDS: Acetaminophen/oxyCODONE 325-5 MG Tab PO PRN ×2 (19:47→23:11)
[2019-08-13] MEDS ORDERED: buPROPion 150 MG Tab.ER PO SCH (21:00)
[2019-08-14] MEDS: Acetaminophen/oxyCODONE 325-5 MG Tab PO PRN ×2 (03:59→09:49)
[2019-08-14] MEDS: Insulin Regular, Human 100 Units/ML 10 ML Vial SUBCUT SCH (06:14)
[2019-08-14 06:20] LABS: BLOOD UREA NITROGEN,BUN 7 mg/dL (7.0-18.0); CARBON DIOXIDE,CO2 28.2 mmol/L (21.0-32.0); CHLORIDE,CL 105 mmol/L (98-107); GLUCOSE RANDOM 100 mg/dL (74-106); POTASSIUM,K 3.8 mmol/L (3.5-5.1); SODIUM,NA 140 mmol/L (136-145)
--- NOTE | 2019-08-14 09:08 | PCM.SURGPN ---
- General Info Date of Service: 08/14/19 Date of Surgery/Procedure: 08/13/19 POD#: 1 Post-Op Diagnosis: menorrhagia, uterine fibroids. Functional Status: Reports: Pain Controlled, Tolerating Diet, Ambulating, Urinating - Review of Systems General: Reports: No Symptoms HEENT: Reports: No Symptoms Pulmonary: Reports: No Symptoms Cardiovascular: Reports: No Symptoms Gastrointestinal: Reports: No Symptoms Genitourinary: Reports: No Symptoms Musculoskeletal: Reports: No Symptoms Skin: Reports: No Symptoms Neurological: Reports: No Symptoms Psychiatric: Reports: No Symptoms - Patient Data Vitals - Most Recent: Last Vital Signs Temp 36.6 C 08/14/19 04:00 Pulse 80 08/14/19 04:00 Resp 13 08/14/19 04:00 BP 113/72 08/14/19 04:00 Pulse Ox 100 08/14/19 04:00 Weight - Most Recent: 66.678 kg I&O - Last 24 Hours: Intake & Output 08/13/19 08/14/19 08/14/19 22:59 06:59 14:59 Intake Total 120 400 Output Total 475 2000 Balance -355 -1600 Lab Results Last 24 Hrs: Laboratory Results - last 24 hr 08/13/19 08/13/19 08/13/19 Range/Units 12:17 17:12 21:04 WBC (4.0-11.0) K/uL RBC (4.30-5.90) M/uL Hgb (12.0-16.0) g/dL Hct (36.0-46.0) % MCV (80.0-98.0) fL MCH (27.0-32.0) pg MCHC (31.0-37.0) g/dL RDW Std Deviation (28.0-62.0) fl RDW Coeff of [place] (11.0-15.0) % Plt Count (150-400) K/uL MPV (7.40-12.00) fL Neut % (Auto) (48.0-80.0) % Lymph % (Auto) (16.0-40.0) % [place] % (Auto) (0.0-15.0) % Eos % (Auto) (0.0-7.0) % Baso % (Auto) (0.0-1.5) % Neut # (Auto) (1.4-5.7) K/uL Lymph # (Auto) (0.6-2.4) K/uL [place] # (Auto) (0.0-0.8) K/uL Eos # (Auto) (0.0-0.7) K/uL Baso # (Auto) (0.0-0.1) K/uL Nucleated RBC % /100WBC Nucleated RBCs # K/uL Sodium (136-145) mmol/L Potassium (3.5-5.1) mmol/L Chloride (98-107) mmol/L Carbon Dioxide (21.0-32.0) mmol/L BUN (7.0-18.0) mg/dL Creatinine (0.6-1.0) mg/dL Est Cr Clr Drug Dosing mL/min Estimated GFR (MDRD) ml/min Glucose (74-106) mg/dL POC Glucose 126 H 121 H 132 H (60-110) mg/dL Calcium (8.5-10.1) mg/dL 08/14/19 08/14/19 08/14/19 Range/Units 05:45 05:45 06:14 WBC 11.24 H (4.0-11.0) K/uL RBC 3.13 L (4.30-5.90) M/uL Hgb 9.7 L (12.0-16.0) g/dL Hct 29.9 L (36.0-46.0) % MCV 95.5 (80.0-98.0) fL MCH 31.0 (27.0-32.0) pg MCHC 32.4 (31.0-37.0) g/dL RDW Std Deviation 49.8 (28.0-62.0) fl RDW Coeff of [place] 14 (11.0-15.0) % Plt Count 187 (150-400) K/uL MPV 11.90 (7.40-12.00) fL Neut % (Auto) 72.3 (48.0-80.0) % Lymph % (Auto) 18.2 (16.0-40.0) % [place] % (Auto) 8.5 (0.0-15.0) % Eos % (Auto) 0.7 (0.0-7.0) % Baso % (Auto) 0.3 (0.0-1.5) % Neut # (Auto) 8.1 H (1.4-5.7) K/uL Lymph # (Auto) 2.1 (0.6-2.4) K/uL [place] # (Auto) 1.0 H (0.0-0.8) K/uL Eos # (Auto) 0.1 (0.0-0.7) K/uL Baso # (Auto) 0.0 (0.0-0.1) K/uL Nucleated RBC % 0.0 /100WBC Nucleated RBCs # 0 K/uL Sodium 140 (136-145) mmol/L Potassium 3.8 (3.5-5.1) mmol/L Chloride 105 (98-107) mmol/L Carbon Dioxide 28.2 (21.0-32.0) mmol/L BUN 7 (7.0-18.0) mg/dL Creatinine 0.8 (0.6-1.0) mg/dL Est Cr Clr Drug Dosing 74.66 mL/min Estimated GFR (MDRD) > 60.0 ml/min Glucose 100 (74-106) mg/dL POC Glucose 92 (60-110) mg/dL Calcium 7.7 L (8.5-10.1) mg/dL Med Orders - Current: Current Medications Albuterol (Ventolin Hfa) 0 gm INH Q4H PRN PRN Reason: Shortness of Breath Bupropion HCl (Wellbutrin Xl) 300 mg PO BEDTIME [facility] Last Admin: 08/13/19 21:10 Dose: 300 mg Enoxaparin Sodium (Lovenox) 40 mg SUBCUT Q24H [facility] Last Admin: 08/13/19 12:09 Dose: Not Given Fentanyl (Sublimaze) 50 mcg IVPUSH SEECOMMENT PRN PRN Reason: Pain (moderate 4-6) Lactated Ringer's (Ringers, Lactated) 1,000 mls @ 100 mls/hr IV ASDIRECTED [facility] Last Admin: 08/13/19 19:49 Dose: 100 mls/hr Insulin Human Regular (Novolin R) 0 unit SUBCUT QIDACANDBED [facility]; Protocol Last Admin: 08/14/19 06:14 Dose: Not Given Morphine Sulfate (Morphine) 4 mg IVPUSH Q2H PRN PRN Reason: Pain (severe 7-10) Last Admin: 08/13/19 14:40 Dose: 4 mg Ondansetron HCl (Zofran) 4 mg IVPUSH Q6H PRN PRN Reason: Nausea/Vomiting Oxycodone/Acetaminophen (Percocet 325-5 Mg) 1 tab PO Q4H PRN PRN Reason: Pain (moderate 4-6) Last Admin: 08/14/19 03:59 Dose: 1 tab Oxycodone/Acetaminophen (Percocet 325-5 Mg) 2 tab PO Q4H PRN PRN Reason: Pain (moderate 4-6) Budesonide/Formoterol 160-4.5 Mcg/Puff 6 Gm Inhaler 2 each INH BID PRN PRN Reason: Shortness of Breath Promethazine HCl (Phenergan) 25 mg IM Q6H PRN PRN Reason: Nausea/Vomiting Sodium Chloride (Saline Flush) 10 ml FLUSH ASDIRECTED PRN PRN Reason: Keep Vein Open Sodium Chloride (Saline Flush) 2.5 ml FLUSH ASDIRECTED PRN PRN Reason: Keep Vein Open Sodium Chloride (Normal Saline) 10 ml IV ASDIRECTED PRN PRN Reason: IV Use Discontinued Medications Bupivacaine HCl (Sensorcaine-Mpf 0.25%) Confirm Administered Dose 20 ml .ROUTE .STK-MED ONE Stop: 08/13/19 08:13 Ephedrine Sulfate (Ephedrine Sulfate) Confirm Administered Dose 50 mg .ROUTE .STK-MED ONE Stop: 08/13/19 09:10 Fentanyl (Sublimaze) Confirm Administered Dose 100 mcg .ROUTE .STK-MED ONE Stop: 08/13/19 07:27 Fentanyl (Sublimaze) Confirm Administered Dose 100 mcg .ROUTE .STK-MED ONE Stop: 08/13/19 09:21 Fentanyl (Sublimaze) Confirm Administered Dose 100 mcg .ROUTE .STK-MED ONE Stop: 08/13/19 09:48 Fluorescein Sodium (Ak-Fluor) Confirm Administered Dose 5 ml .ROUTE .STK-MED ONE Stop: 08/13/19 10:20 Furosemide (Lasix) Confirm Administered Dose 40 mg .ROUTE .STK-MED ONE Stop: 08/13/19 10:20 Hydromorphone HCl (Dilaudid) Confirm Administered Dose 2 mg .ROUTE .STK-MED ONE Stop: 08/13/19 10:09 Cefazolin Sodium/Dextrose 1 gm (/ Premix) 50 mls @ 100 mls/hr IV ONETIME ONE Stop: 08/13/19 09:59 Last Admin: 08/13/19 12:10 Dose: Not Given Cefazolin Sodium/Dextrose (Ancef) Confirm Administered Dose 50 mls @ as directed .ROUTE .STK-MED ONE Stop: 08/13/19 09:05 Ketamine HCl (Ketalar) Confirm Administered Dose 500 mg .ROUTE .STK-MED ONE Stop: 08/13/19 09:21 Lidocaine (Xylocaine-Mpf 2%) Confirm Administered Dose 5 ml .ROUTE .STK-MED ONE Stop: 08/13/19 07:27 Methylene Blue (Provayblue) Confirm Administered Dose 50 mg .ROUTE .STK-MED ONE Stop: 08/13/19 08:12 Midazolam HCl (Versed 1 Mg/Ml) Confirm Administered Dose 2 mg .ROUTE .STK-MED ONE Stop: 08/13/19 07:27 Ondansetron HCl (Zofran) Confirm Administered Dose 4 mg .ROUTE .STK-MED ONE Stop: 08/13/19 07:27 Budesonide/Formoterol 160-4.5 Mcg/Puff 6 Gm Inhaler 1 each INH BID PRN PRN Reason: Shortness of Breath Propofol (Diprivan 20 Ml) Confirm Administered Dose 400 mg .ROUTE .STK-MED ONE Stop: 08/13/19 07:27 Propofol (Diprivan 20 Ml) Confirm Administered Dose 200 mg .ROUTE .STK-MED ONE Stop: 08/13/19 08:08 Propofol (Diprivan 20 Ml) Confirm Administered Dose 200 mg .ROUTE .STK-MED ONE Stop: 08/13/19 10:11 Scopolamine (Transderm-Scop) Confirm Administered Dose 1.5 mg .ROUTE .STK-MED ONE Stop: 08/13/19 09:35 - Exam General: Alert, Oriented Neck: Supple Lungs: Normal Respiratory Effort GI/Abdominal Exam: Soft, Non-Tender, No Distention Extremities: Normal Range of Motion, No Pedal Edema, Normal Capillary Refill Skin: Warm, Dry, Intact Neurological: No New Focal Deficit Psy/Mental Status: Alert, Normal Affect, Normal Mood Sepsis Event Note - Focused Exam Vital Signs: Vital Signs Temp Pulse Resp BP Pulse Ox 08/14/19 04:00 36.6 C 80 13 113/72 100 Date Exam was Performed: 08/14/19 Time Exam was Performed: 09:06 - Problem List & Annotations (1) Menorrhagia SNOMED Code(s): 698355181 Code(s): N92.0 - EXCESSIVE AND FREQUENT MENSTRUATION WITH REGULAR CYCLE Status: Acute Current Visit: Yes Qualifiers: Menorrhagia type: premenopausal Qualified Code(s): N92.4 - Excessive bleeding in the premenopausal period (2) Leiomyoma of body of uterus SNOMED Code(s): 20842123 Code(s): D25.9 - LEIOMYOMA OF UTERUS, UNSPECIFIED Status: Acute Current Visit: Yes - Problem List Review Problem List Initiated/Reviewed/Updated: Yes - My Orders Last 24 Hours: Active Orders 24 hr Category Date Time Status Patient Status [ADT] Routine ADT 08/13/19 10:57 Active Bradycardia-Neuroaxis [employer] [RC] ROUTINE Care 08/13/19 10:06 Active Hypertension-Neuroaxis [employer] [RC] ROUTINE Care 08/13/19 10:06 Active Hypotension-Neuroaxis [employer] [RC] ROUTINE Care 08/13/19 10:06 Active Notify Provider Intake and Out [RC] ASDIRECTED Care 08/13/19 10:57 Active Notify Provider Vital Signs [RC] ASDIRECTED Care 08/13/19 10:57 Active Oxygen Therapy [RC] ASDIRECTED Care 08/13/19 10:06 Active Oxygen Therapy [RC] ASDIRECTED Care 08/13/19 10:57 Active RT Incentive Spirometry [RC] Q2HWA Care 08/13/19 10:57 Active Ready for Discharge [RC] PER UNIT ROUTINE Care 08/14/19 09:05 Ordered Up With Assistance [RC] PER UNIT ROUTINE Care 08/13/19 10:57 Active Up ad Aileen [RC] PER UNIT ROUTINE Care 08/13/19 10:57 Active Urinary Catheter Removal [RC] Per Unit Routine Care 08/13/19 10:57 Active Vital Signs [RC] PER UNIT ROUTINE Care 08/13/19 10:57 Active Consistent Carbohydrate Diet [DIET] Diet 08/13/19 Lunch Active Acetaminophen/oxyCODONE [Percocet 325-5 MG] Med 08/13/19 10:57 Active 1 tab PO Q4H PRN Acetaminophen/oxyCODONE [Percocet 325-5 MG] Med 08/13/19 10:57 Active 2 tab PO Q4H PRN Albuterol [Ventolin HFA] Med 08/13/19 11:05 Active 0 gm INH Q4H PRN Enoxaparin [Lovenox] Med 08/13/19 09:30 Active 40 mg SUBCUT Q24H Insulin Regular, Human [NovoLIN R] Med 08/13/19 11:30 Active See Dose Instructions SUBCUT QIDACANDBED Morphine Med 08/13/19 10:57 Active 4 mg IVPUSH Q2H PRN Ondansetron [Zofran] Med 08/13/19 10:57 Active 4 mg IVPUSH Q6H PRN Patient's Own Medication [Ptom] Med 08/13/19 11:11 Active 2 each INH BID PRN Promethazine [Phenergan] Med 08/13/19 10:57 Active 25 mg IM Q6H PRN buPROPion [Wellbutrin XL] Med 08/13/19 21:00 Active 300 mg PO BEDTIME fentaNYL [Sublimaze] Med 08/13/19 10:07 Active 50 mcg IVPUSH SEECOMMENT PRN Peripheral IV Discontinue [OM.PC] Routine Oth 08/13/19 10:57 Ordered Sequential Compression Device [OM.PC] Per Unit Routine Oth 08/13/19 10:57 Ordered Resuscitation Status Routine Resus Stat 08/13/19 10:57 Ordered Medication Orders Albuterol (Ventolin Hfa) 0 gm INH Q4H PRN PRN Reason: Shortness of Breath Bupropion HCl (Wellbutrin Xl) 300 mg PO BEDTIME [facility] Last Admin: 08/13/19 21:10 Dose: 300 mg Enoxaparin Sodium (Lovenox) 40 mg SUBCUT Q24H [facility] Last Admin: 08/13/19 12:09 Dose: Not Given Fentanyl (Sublimaze) 50 mcg IVPUSH SEECOMMENT PRN PRN Reason: Pain (moderate 4-6) Lactated Ringer's (Ringers, Lactated) 1,000 mls @ 100 mls/hr IV ASDIRECTED [facility] Last Admin: 08/13/19 19:49 Dose: 100 mls/hr Infusion: 08/13/19 18:44 Dose: 100 mls/hr Admin: 08/13/19 08:44 Dose: 100 mls/hr Insulin Human Regular (Novolin R) 0 unit SUBCUT QIDACANDBED [facility]; Protocol Last Admin: 08/14/19 06:14 Dose: Admin: 08/13/19 21:16 Dose: Admin: 08/13/19 17:21 Dose: Not Given Admin: 08/13/19 12:23 Dose: Not Given Morphine Sulfate (Morphine) 4 mg IVPUSH Q2H PRN PRN Reason: Pain (severe 7-10) Last Admin: 08/13/19 14:40 Dose: 4 mg Admin: 08/13/19 11:33 Dose: 4 mg Ondansetron HCl (Zofran) 4 mg IVPUSH Q6H PRN PRN Reason: Nausea/Vomiting Oxycodone/Acetaminophen (Percocet 325-5 Mg) 1 tab PO Q4H PRN PRN Reason: Pain (moderate 4-6) Last Admin: 08/14/19 03:59 Dose: 1 tab Admin: 08/13/19 23:11 Dose: 1 tab Admin: 08/13/19 19:47 Dose: 1 tab Oxycodone/Acetaminophen (Percocet 325-5 Mg) 2 tab PO Q4H PRN PRN Reason: Pain (moderate 4-6) Budesonide/Formoterol 160-4.5 Mcg/Puff 6 Gm Inhaler 2 each INH BID PRN PRN Reason: Shortness of Breath Promethazine HCl (Phenergan) 25 mg IM Q6H PRN PRN Reason: Nausea/Vomiting Sodium Chloride (Saline Flush) 10 ml FLUSH ASDIRECTED PRN PRN Reason: Keep Vein Open Sodium Chloride (Saline Flush) 2.5 ml FLUSH ASDIRECTED PRN PRN Reason: Keep Vein Open Sodium Chloride (Normal Saline) 10 ml IV ASDIRECTED PRN PRN Reason: IV Use - Assessment Assessment (Free Text/Narrative):: POD#1 after total vaginal hysterectomy, history of DVT. Stable, tolerating diet , ambulating and has voided. - Plan Plan (Free Text/Narrative):: Dismiss to home precautions reviewed.
[2019-08-14] MEDS: Enoxaparin 40 MG/0.4 ML Syringe SUBCUT SCH (09:50)
[2019-08-14 11:17] VITALS: BP 109/54; PULSE 82
== END 2019-08-14 11:08 | disposition home or self-care (01) ==
LOC: MW.SDS 07:55 → MW.OB 11:21 → MW.SDS 08-14 11:08
PROVIDERS: ATTEND Obstetrics & Gynecology
DX: D25.0 Submucous leiomyoma of uterus (principal); D25.1 Intramural leiomyoma of uterus; D25.2 Subserosal leiomyoma of uterus; N80.0 Endometriosis of uterus; N88.8 Other specified noninflammatory disorders of cervix uteri; K21.9 Gastro-esophageal reflux disease without esophagitis; J45.909 Unspecified asthma, uncomplicated; F32.9 Major depressive disorder, single episode, unspecified; E11.9 Type 2 diabetes mellitus without complications; F17.210 Nicotine dependence, cigarettes, uncomplicated; Z88.0 Allergy status to penicillin; Z79.84 Long term (current) use of oral hypoglycemic drugs; Z79.899 Other long term (current) drug therapy
CPT/HCPCS: 36415; 58260; 80048; 82962; 84703; 85025; 85027; 86850; 86900; 86901; 87635; A9270; J0690; J1170; J1650; J1940; J2001; J2250; J2270; J2405; J2704; J3010; J7120; 00944; 88307; J3490; U0002

== ENCOUNTER 2023-02-03 11:23 | Day surgery (SDC) | payer OTHER ==
[~2023-02-03 11:23] MED LIST changes: +Lactated Ringers 1,000 ML IV SCH; -Lidocaine 2% 5 ML SDV ONE; -Midazolam 1 MG/ML 2 ML SDV ONE; -Ondansetron 4 MG/2 ML SDV ONE; -Propofol 200 MG/20 ML SDV ONE; -Sodium Chloride 0.9% 10 ML SDV IV PRN; +Sodium Chloride 0.9% 20 ML SDV IV PRN; -fentaNYL 100 MCG/2 ML SDV ONE
[2023-02-03] MEDS ORDERED: propofoL 50 ML ONE (11:57)
[2023-02-03] MEDS ORDERED: dexmedeTOMIDine HCl 200 MCG/2 ML SDV ONE (11:58)
[2023-02-03 14:22] VITALS: BP 148/74; PULSE 69
== END 2023-02-03 12:50 | disposition home or self-care (01) ==
LOC: MW.SDS 11:23
PROVIDERS: ATTEND Surgery
DX: K29.50 Unspecified chronic gastritis without bleeding (principal); K21.9 Gastro-esophageal reflux disease without esophagitis; J45.30 Mild persistent asthma, uncomplicated; E11.9 Type 2 diabetes mellitus without complications; F32.A Depression, unspecified; G47.33 Obstructive sleep apnea (adult) (pediatric); E66.3 Overweight; Z68.29 Body mass index [BMI] 29.0-29.9, adult; Z87.891 Personal history of nicotine dependence; Z79.84 Long term (current) use of oral hypoglycemic drugs; Z79.899 Other long term (current) drug therapy; Z88.0 Allergy status to penicillin
CPT/HCPCS: 43239; J2704; J7120; J3490